=== PATIENT | female | born 1980 | race Caucasian/White ===

== ENCOUNTER 2016-02-28 12:26 | Outpatient (CLI) | payer OTHER ==
[~2016-02-28] VITALS: Ht 162.6 cm; Wt 94.8 kg
[2016-02-28] MEDS ORDERED: NORG1TAB7 PO (12:42)
[2016-02-28] MEDS ORDERED: LISI10TA2 PO (12:42)
[2016-02-28 12:43] VITALS: BP 147/90
== END 2016-02-28 14:07 | disposition home or self-care (01) ==
LOC: PREOP 12:26
PROVIDERS: ATTEND Podiatrist Foot & Ankle Surgery
DX: Z01.818 Encounter for other preprocedural examination (principal); Z11.2 Encounter for screening for other bacterial diseases; C76.51 Malignant neoplasm of right lower limb
CPT/HCPCS: 87081

== ENCOUNTER 2016-03-06 07:51 | Day surgery (SDC) | payer OTHER ==
[~2016-03-06] VITALS: Ht 162.6 cm; Wt 94.8 kg
[~2016-03-06 07:51] MED LIST: LISI10TA2 PO; NORG1TAB7 PO
--- OUTSIDE RECORDS SUMMARY | 2016-03-06 07:55 | XMS REPORT | Continuity of Care Document ---
Author Author [facility] Organization [facility] Address Unknown Phone Unavailable Care Team Providers Care Associate Agent Insurance Sales Name Role Phone LENARDJOSEHUMBERTO ELIS Abby BARON PCP Insurance Providers Payer Name Policy Number Subscriber Name Relationship [facility] [id number] Tramaine Eli 18 Self / Same As Patient Advance Directives Directive Response Recorded Date/Time Advance Directives No 02/28/16 12:39pm Health Care Power of Regulator Operator No 02/28/16 12:39pm Resuscitation Status Full Code 02/28/16 12:39pm Problems No problem information available. Medications Current Home Medications Medication Dose Units Route Directions Days/Qty Instructions Start Date Lisinopril 10 Mg 10 Mg Oral Daily 02/28/16 Norgestimate-Ethinyl Estradiol 1 Each 1 Each Oral Daily 02/28/16 Social History Social History Problem Response Recorded Date/Time Alcohol Use Rarely Uses 02/28/2016 12:39pm Recreational Drug Use No 02/28/2016 12:39pm Recent Foreign Travel No 02/28/2016 12:38pm Recent Infectious Disease Exposure No 02/28/2016 12:38pm Sexually Transmitted Disease No 02/28/2016 12:39pm HIV/AIDS No 02/28/2016 12:39pm Smoking Status Never a Smoker 02/28/2016 12:39pm Recent Hopitalizations No 02/28/2016 12:39pm Sexually Transmitted Disease No 02/28/2016 12:39pm Query Response Start Date Stop Date Smoking Status Never a Smoker Hospital Discharge Instructions No hospital discharge instructions. Plan of Care Discharge Date 02/28/16 2:07pm Prescriptions See Medication Section Functional Status No functional status results. Allergies, Adverse Reactions, Alerts No known allergies. Immunizations No immunization records. Vital Signs Acute Vital Signs Vital Response Date/Time Pulse Rate (adult) 68 bpm (60 - 90) 02/28/2016 12:43pm Respiratory Rate 16 bpm (12 - 24) 02/28/2016 12:43pm O2 Sat by Pulse Oximetry 100 % (88 - 100) 02/28/2016 12:43pm Blood Pressure 147/90 mm Hg 02/28/2016 12:43pm Blood Pressure Mean 109 mm Hg 02/28/2016 12:43pm Pain Numeric Pain Scale 5-Moderate Pain 02/28/2016 12:43pm Height (Feet) 5 feet 02/28/2016 12:28pm Height (Inches) 4.00 inches 02/28/2016 12:28pm Height (Calculated Centimeters) 162.661559 cm 02/28/2016 12:28pm Weight (Pounds) 209 pounds 02/28/2016 12:28pm Weight (Ounces) 0.0 oz 02/28/2016 12:28pm Weight (Calculated Grams) 95025.81 gm 02/28/2016 12:28pm Weight (Calculated Kilograms) 94.525403 kilograms 02/28/2016 12:28pm Calculated BMI 35.9 02/28/2016 12:28pm Results No known relevant diagnostic tests, laboratory data and/or discharge summary. Procedures No known history of procedures. Encounters Encounter Location Arrival/Admit Date Discharge/Depart Date Attending Provider Departed Clinic [facility] 02/28/16 12:26pm 02/28/16 2: 07pm SIDNEY NORMAN DPM
--- OUTSIDE RECORDS SUMMARY | 2016-03-06 07:56 | XMS REPORT | Continuity of Care Document ---
Author Author [facility] Organization [facility] Address Unknown Phone Unavailable Care Team Providers Care Manufacturing Scheduler Name Role Phone LENARDJOSEHUMBERTO ELIS Abby BARON PCP Insurance Providers Payer Name Policy Number Subscriber Name Relationship [facility] [id number] Tramaine Eli 18 Self / Same As Patient Advance Directives Directive Response Recorded Date/Time Advance Directives No 02/28/16 12:39pm Health Care Power of Gear Repairer No 02/28/16 12:39pm Resuscitation Status Full Code [...] 4.00 inches 02/28/2016 12:28pm Height (Calculated Centimeters) 162.363471 cm 02/28/2016 12:28pm Weight (Pounds) 209 pounds 02/28/2016 12:28pm Weight (Ounces) 0.0 oz 02/28/2016 12:28pm Weight (Calculated Grams) 71647.81 gm 02/28/2016 12:28pm Weight (Calculated Kilograms) 94.808971 kilograms 02/28/2016 12:28pm Calculated BMI 35.9 02/28/2016 12:28pm Results No known relevant diagnostic tests, laboratory data and/or discharge summary. Procedures No known history of procedures. Encounters Encounter Location Arrival/Admit Date Discharge/Depart Date Attending Provider Departed Clinic [facility] 02/28/16 12:26pm 02/28/16 2: 07pm SIDNEY NORMAN DPM
[2016-03-06 08:00] VITALS: BP 147/93
[2016-03-06] MEDS: LACTATED RINGERS 1,000 ML IV PRN ×2 (08:35→09:39)
[2016-03-06] MEDS ORDERED: ceFAZolin 1 GM/NS 50 ML IVPB IV ONE ×2 (08:45)
[2016-03-06] MEDS ORDERED: CATHETER FLUSH 10 ML SYR IV PRN (08:45)
[2016-03-06] MEDS ORDERED: BUPIVACAINE 0.5% 30 ML (SENSORCAINE) VIAL ONE (08:55)
[2016-03-06] MEDS ORDERED: LIDOCAINE 1% INJ 20 ML (XYLOCAINE) VIAL ONE (08:55)
[2016-03-06] MEDS ORDERED: MIDAZOLAM 2 MG/2 ML (VERSED) VIAL ONE (09:03)
[2016-03-06] MEDS ORDERED: fentaNYL INJECTION 100 MCG/2 ML AMP ONE ×2 (09:03→09:47)
--- NOTE | 2016-03-06 09:14 | Progress Note-Pre Operative ---
Pre-Operative Progress Note H&P Reviewed The H&P was reviewed, patient examined and no changes noted. Date H&P Reviewed: Mar 06, 2016 Time H&P Reviewed: 09:13 Pre-Operative Diagnosis: Mass of right foot SIDNEY NORMAN DPM Mar 06, 2016 9:14 am
[2016-03-06] MEDS ORDERED: KETOROLAC 30 MG/ML VIAL ONE (09:40)
[2016-03-06] MEDS ORDERED: LACTATED RINGERS 2,000 ML IV ONE (09:40)
[2016-03-06] MEDS ORDERED: DEXAMETHASONE PF 10 MG/ML (DECADRON) VIAL ONE (09:40)
[2016-03-06] MEDS ORDERED: LIDOCAINE PF 2% 10 ML (XYLOCAINE) AMP ONE (09:40)
[2016-03-06] MEDS ORDERED: ONDANSETRON 4 MG/2 ML (SDV) Z0FRAN ONE ×2 (09:40→10:48)
[2016-03-06] MEDS ORDERED: proPOfol 200 MG/20 ML (DIPRIVAN) VIAL IV ONE (09:40)
[2016-03-06] MEDS ORDERED: SEVOFLURANE (ULTANE) 15 ML INHAL SOLN ONE (09:41)
[2016-03-06] MEDS ORDERED: LACTATED RINGERS 1,000 ML IV SCH (10:10)
--- NOTE | 2016-03-06 10:10 | Progress Note-Post Operative ---
Post-Operative Progess Note Pre-Operative Diagnosis Mass of right foot Post-Operative Diagnosis Same Post-Op Procedure Note Date of Procedure: Mar 06, 2016 Name of Procedure: Removal of mass right foot Procedure Note/Findings removed an approximate [id number] hard mass from the plantar 2nd intermetatarsal space Anesthesia Type General Estimated blood loss (mL): Minimal Specimen(s) collected Mass right foot SIDNEY NORMAN DPM Mar 06, 2016 10:10 am
[2016-03-06] MEDS ORDERED: HYDR-3812 PO (10:13)
[2016-03-06] MEDS ORDERED: ONDANSETRON 4 MG/2 ML (SDV) Z0FRAN IVP PRN (10:15)
[2016-03-06] MEDS ORDERED: HYDROcodone/APAP 5 MG/325 MG (LORTAB) TAB PO PRN (10:15)
[2016-03-06] MEDS ORDERED: morphine INJ 10 MG/ML 1ML (SYR OR VIAL) IV PRN (10:45)
[2016-03-06] MEDS ORDERED: fentaNYL INJECTION 100 MCG/2 ML AMP IV PRN (10:45)
[2016-03-06] MEDS ORDERED: ONDANSETRON 4 MG/2 ML (SDV) Z0FRAN IV ONE (10:45)
[2016-03-06 11:10] VITALS: BP 135/82
[2016-03-06 11:40] VITALS: BP 128/82
--- NOTE | 2016-03-06 12:14 | Physical Therapy Ortho Eval ---
PT Orthopedic Evaluation Type of Surgery Lesion R foot Prior Level of Function Current Living Status: Spouse Locomotion (Upon Admit): Independent Established Durable Medical Eq: None Subjective Subjective Agrees to PT. Plans to use crutches and a knee scooter at home. Entry Into Home: Stairs With Railing Steps Into Home: 2 Steps Inside Home: 2 Steps Accessories: Railing Present Objective Objective post surgical intervention; NWB right Motor Control Motor Control: Motor Control WNL ROM ROM: WFL Strength Strength: WFL Transfer Transfers (B, C, W/C) (FIM): 5 Post treatment, pt is mod indep Gait Gait Assistive Device: Crutches Weight Bearing Restriction: Non Weight Bearing Location Restriction: R LE Summary/Comments Gait training with crutches, NWB right. Fit and provided crutches. Gait training on level surfaces and up/down a curb step. Pt was SBA-CGA initially but mod indep post treatment. Educated pt on use of knee walker when she gets one. Treatment Rendered Treatment: Gait Train, Step Train Assessment/Goals Goal Time Frame: 1 Visit Safe Ambulation: Yes Plan Treatment Plan: Discharge Treatment Duration: 1 visit Time Time In: 1140 Time Out: 1200 Total Billed Treatment Time: 20 Billed Treatment Time Visit EVLow 20 min OMAYRA STOKES PT Mar 06, 2016 12:13
[2016-03-06 12:20] VITALS: BP 133/80
[2016-03-06 12:30] VITALS: BP 133/80
--- NOTE | 2016-03-06 12:40 | OPERATIVE REPORT ---
PROCEDURE PHYSICIAN: TRISTA NORMAN DATE OF PROCEDURE: 03/06/2016 SURGEON: Dr. Trista Norman, [place]. PREOPERATIVE DIAGNOSIS: Mass of right forefoot. POSTOPERATIVE DIAGNOSIS: Mass of right forefoot. PROCEDURE: Excision of mass, right foot. WOUND CLASS: Clean. ANESTHESIA: General. HEMOSTASIS: Pneumatic thigh tourniquet at 300 mmHg. INDICATION: This 36-year-old female presents complaining of a painful right forefoot. X-rays indicate a hard mass that seems to have a nice border to the plantar aspect of the right forefoot between the second and 3rd metatarsal heads. The patient says this has had an insidious onset over the last year or so. Conservative therapy is met with unsatisfactory results and the patient is agreeable to surgical intervention after risk and complications were discussed at length. No guarantees were extended to the patient. She understands there could be continued need for further surgeries, loss of function or numbness to the right forefoot and she is willing to proceed. PROCEDURE: The patient was brought back to the operative table, placed in a secure, supine position. General anesthetic was then induced. Appropriate timeout was performed. A pneumatic thigh tourniquet was placed on the right lower extremity over several layers of padding. The right foot was then prepped and draped in the normal sterile manner. The right foot was then elevated, allowed to exsanguinate after which the tourniquet was inflated to 300 mmHg Attention was then directed to the plantar aspect of the right second intermetatarsal space where a 3 cm longitudinal linear incision was created. The incision was deepened in the same plane with great care to identify and retract all vital neurovascular structures. A combination of blunt and sharp dissection was carried out to the deep fascia where an indurated mass was identified. It sat between the surgical max and the metatarsal head of the second and 3rd metatarsals. The lesion was somewhat capsulated and it was able to be resected without much difficulty. The majority of adhesion was dorsally and it appeared to be somewhat attached to the proximal phalanx of the right 3rd digit. No other abnormalities were identified at this point. The specimen was sent for gross and microscopic evaluation. It appeared to be approximately 2 cm in diameter. The wound was flushed with copious amounts of normal saline once again after which closure was performed in layers. Subcutaneous tissue was reapproximated with 3-0 Vicryl followed by 4-0 Vicryl. Skin closure was performed with 4-0 Prolene in a simple interrupted type stitch. Postoperative injection consisted of 10 mL of 0.5% Marcaine injected in a local infusion to the surgical site. Postoperative dressing consisted of Betadine soaked Adaptic, sterile 4 x 4, sterile Kerlix, all secured with a Coban wrap. The patient tolerated the anesthesia and procedure well and was transported from the operating room to the recovery area with vital signs stable and vascular status intact to all digits of the right foot. She is to follow-up in my office in one week period of time or sooner if necessary Job ID: [id number] Dictated Date: 03/06/2016 10:18:28 Portable Machine Sander Date: 03/06/2016 12:30:34 / ulisses
--- NOTE | 2016-03-07 13:32 | HISTORY AND PHYSICAL ---
DICTATING PHYSICIAN: Dr. Velazquez DATE OF SURGERY: 03/06/2016 Output patient surgery by Dr. Guzman. CHIEF COMPLAINT: Removing a lesion on the bottom of the right foot, by the toes. ALLERGIC TO MEDICATIONS: Denies. MEDICATIONS NOW ON: 1. Lisinopril. 2. Ortho Tri-Cyclen control. PREVIOUS SURGERIES: Tonsils and adenoids. FAMILY HISTORY: Son asthma. Denies TB, diabetes, heart disease, lung disease, cancer. REVIEW OF SYSTEMS: HEAD: Denies headache, dizziness, fainting. EYES, EARS, NOSE AND THROAT: Denies diplopia, tinnitus, sore throat. RESPIRATORY: Denies asthma, TB, coughing, congestion, smoking or wheezing. HEART: No history of heart problems, chest pain or heart murmur. GASTROINTESTINAL: Appetite good. Denies blood in stools, diarrhea, constipation, ulcer, vomiting. GENITOURINARY: Denies blood, pain, frequency. MENSTRUAL: Last menstrual period one week ago. The patient is a white female, well-nourished, well-developed, in no acute respiratory distress at rest. VITAL SIGNS: Pulse 76, blood pressure 140/90, weight 208. EARS: Not inflamed. EYES: No conjunctiva conjunctivitis or icterus. THROAT: Not inflamed. NECK: Thyroid not enlarged. No abnormal cervical lymphadenopathy noted. HEART: Regular rate and rhythm. LUNGS: Clear to auscultation. ABDOMEN: Soft. Liver and spleen nonpalpable. EXTREMITIES: No pretibial edema. Good dorsalis pedis pulses. PLAN: The patient okay to have surgery. We will be on standby if has any problems. Job ID: [id number] Dictated Date: 02/28/2016 12:06:00 Laboratory Scientist Date: 02/28/2016 12:30:20/ulisses
== END 2016-03-06 12:30 | disposition home or self-care (01) ==
LOC: SDC 07:51
PROVIDERS: ATTEND Podiatrist Foot & Ankle Surgery
DX: R22.41 Localized swelling, mass and lump, right lower limb (principal); I10 Essential (primary) hypertension; Z79.899 Other long term (current) drug therapy
CPT/HCPCS: 84703